=== PATIENT | male | born 1995 | race Caucasian/White ===

== ENCOUNTER 2019-02-02 20:35 | Emergency (ER) | payer OTHER ==
[~2019-02-02] VITALS: Ht 172.7 cm; Wt 70.5 kg
[2019-02-02] MEDS ORDERED: BACT400T PO (20:43)
[2019-02-02] MEDS ORDERED: DOXY100C PO (22:03)
[2019-02-02] MEDS ORDERED: diphenhydrAMINE 12.5MG/5ML ELIXIR UDC PO ONE (22:30)
[2019-02-02] MEDS ORDERED: FAMOTIDINE 20 MG TAB PO ONE (22:30)
[2019-02-02] MEDS ORDERED: predniSONE 50 MG TAB PO ONE (22:30)
[2019-02-02] MEDS ORDERED: ALBUTEROL SULFATE 2.5 MG/0.5 ML INH NEB SOLN NEB ONE (22:45)
[2019-02-02] MEDS ORDERED: predniSONE 20 MG TAB PO ONE (23:00)
[2019-02-02] MEDS ORDERED: PRED10TA2 PO (23:27)
[2019-02-02] MEDS ORDERED: DIPH25CA PO (23:27)
[2019-02-02] MEDS ORDERED: CIME-49 PO (23:27)
[2019-02-03 00:03] VITALS: BP 127/69
== END 2019-02-03 00:18 | disposition home or self-care (01) ==
LOC: M ED 20:35
DX: R21 Rash and other nonspecific skin eruption (principal); L50.9 Urticaria, unspecified; L29.9 Pruritus, unspecified; T50.995A Adverse effect of other drugs, medicaments and biological substances, initial encounter; X58.XXXA Exposure to other specified factors, initial encounter; Y92.89 Other specified places as the place of occurrence of the external cause; F17.210 Nicotine dependence, cigarettes, uncomplicated